=== PATIENT | male | born 1975 | race African-American/Black ===

== ENCOUNTER 2016-07-09 19:41 | Emergency (ER) | payer OTHER ==
[2016-07-09] MEDS ORDERED: ASPIRIN 81 MG TABLET, CHEWABLE PO ONE (21:01)
[2016-07-09] MEDS ORDERED: LISINOPRIL 10 MG TABLET PO ONE (23:09)
[2016-07-09] MEDS ORDERED: HYDROXYZINE PAMOATE 25 MG CAPSULE #4 (ER DISP) PO PRN (23:09)
--- NOTE | 2016-07-09 23:15 | ER Document Report ---
ED General - General Chief Complaint: Palpitations Stated Complaint: POSSIBLE PALPITATIONS Mode of Arrival: Ambulatory Information source: Patient Notes: Patient is a 41-year-old male who presents to the ER today for anxiety and refills of his blood pressure medication. Patient states that he recently went to her breakup and has been "a little depressed" but dealing with a lot of anxiety about being alone, bills, life, etc. He states that he will make an appointment with a primary care provider but has not called to make an appointment yet. He denies any chest pain, shortness of breath, suicidal or homicidal ideations. He states his anxiety gives him palpitations like his heart is racing. TRAVEL OUTSIDE OF THE [place] IN LAST 30 DAYS: No - Related Data Allergies/Adverse Reactions: No Known Allergies Allergy (Unverified 07/09/16 20:34) Past Medical History - General Information source: Patient - Social History Smoking Status: Former Smoker Chew tobacco use (# tins/day): Yes Frequency of alcohol use: Heavy Drug Abuse: None Family History: Reviewed & Not Pertinent Patient has suicidal ideation: No Patient has homicidal ideation: No - Past Medical History Cardiac Medical History: Reports: Hx Hypertension Review of Systems - Review of Systems Constitutional: No symptoms reported EENT: No symptoms reported Cardiovascular: See HPI Respiratory: No symptoms reported Gastrointestinal: No symptoms reported Genitourinary: No symptoms reported Male Genitourinary: No symptoms reported Musculoskeletal: No symptoms reported Skin: No symptoms reported Hematologic/Lymphatic: No symptoms reported Neurological/Psychological: See HPI Physical Exam - Notes Notes: PHYSICAL EXAMINATION: GENERAL: Anxious, but in no acute distress. HEAD: Atraumatic, normocephalic. EYES: Pupils equal round and reactive to light, extraocular movements intact, sclera anicteric, conjunctiva are normal. NECK: Normal range of motion, supple without lymphadenopathy LUNGS: CTAB and equal. No wheezes rales or rhonchi. HEART: Regular rate and rhythm without murmurs ABDOMEN: Soft, no tenderness. No guarding, no rebound EXTREMITIES: Normal range of motion, no pitting edema. No cyanosis. NEUROLOGICAL: Cranial nerves grossly intact. Normal sensory/motor exams. PSYCH: Anxious SKIN: Warm, Dry, normal turgor, no rashes or lesions noted Course - Re-evaluation Re-evalutation: 01/03/17 23:12 Patient refused blood work stating that he is just here to get refills of his lisinopril 20 mg that he was taking daily but has been out of for many months. I will also send him home with some Vistaril to take when he gets home to see if that calms his anxiety we also gave him a list of primary care providers in the area to make an appointment with. EKG revealed a normal sinus rhythm at a rate of 99 bpm. With no evidence of ischemia or abnormality. Discharge - Discharge Clinical Impression: Anxiety Hypertension Qualifiers: Hypertension type: essential hypertension Qualified Code(s): I10 - Essential ( primary) hypertension Condition: Stable Disposition: HOME, SELF-CARE Additional Instructions: Return immediately for any new or worsening symptoms. Follow up with primary care provider, call tomorrow to make followup appointment. Prescriptions: Hydroxyzine Pamoate [Vistaril 50 mg Capsule] 1 - 2 tab PO PRN PRN #30 capsule PRN Reason: Lisinopril 20 mg PO DAILY #30 tablet Forms: Return to Work
[2016-07-09 23:50] VITALS: BP 143/99
--- NOTE | 2016-07-10 16:04 | EKG REPORT ---
SEVERITY:- NORMAL ECG - SINUS RHYTHM : Confirmed by: Gena Milner 10-Jul-2016 16:03:18
== END 2016-07-09 23:48 | disposition home or self-care (01) ==
LOC: ER 19:41
DX: F41.9 Anxiety disorder, unspecified (principal); I10 Essential (primary) hypertension; Z91.14 Patient's other noncompliance with medication regimen; Z87.891 Personal history of nicotine dependence
CPT/HCPCS: 93005; 99285; 71010; 93010; J3490

== ENCOUNTER 2017-01-19 21:35 | Emergency (ER) | payer OTHER ==
[2017-01-19 21:48] VITALS: BP 133/95
== END 2017-01-19 22:55 | disposition left against medical advice (07) ==
LOC: ER 21:35
DX: Z53.9 Procedure and treatment not carried out, unspecified reason (principal)

== ENCOUNTER 2019-05-10 22:50 | Emergency (ER) | payer OTHER ==
[2019-05-10] MEDS ORDERED: ACETAMINOPHEN 325 MG TABLET PO ONE (23:37)
[2019-05-11] MEDS ORDERED: OXYCODONE HCL IR 5 MG TABLET PO ONE (02:24)
[2019-05-11] MEDS ORDERED: KETOROLAC TROMETHAMINE 60 MG/2 ML SDV IM ONE (02:25)
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
[2019-05-11 04:27] VITALS: BP 139/94
== END 2019-05-11 04:28 | disposition home or self-care (01) ==
LOC: ER 22:50
DX: S39.012A Strain of muscle, fascia and tendon of lower back, initial encounter (principal); V40.5XXA Car driver injured in collision with pedestrian or animal in traffic accident, initial encounter; F17.200 Nicotine dependence, unspecified, uncomplicated; I10 Essential (primary) hypertension
CPT/HCPCS: 72110; J1885

== ENCOUNTER 2020-02-27 21:30 | Emergency (ER) | payer OTHER ==
--- NOTE | 2020-02-27 22:23 | ER Document Report ---
ED Medical Screen (RME) - General Chief Complaint: Chest Pain Stated Complaint: CHEST PAIN Notes: 45-year-old male presenting today with 3 weeks of feeling his heart fluttering and stop. Blood pressure has also been elevated in the 150s systolic. He also has had intermittent chest pain and shortness of breath. Also has had an increased amount of anxiety/stress in the last 3 weeks of trying to be accepted by his coworkers. He also has an upcoming court appearance. Pain is nonradiating. No diaphoresis. History of hypertension. Takes lisinopril. Denies any history of heart attack or stroke. Denies any family history of heart attack or stroke. Occasionally smokes. Does drink. PE: Alert, oriented, anxious in appearance. Heart regular rate rhythm no murmurs rubs or gallops. Lungs are clear to auscultation bilaterally I have greeted and performed a rapid initial assessment of this patient. A comprehesive ED assessment and evaluation of this patient, analysis of test results and completion of the medical decision-making process will be conducted by additional ED providers. TRAVEL OUTSIDE OF THE [place] IN LAST 30 DAYS: No - Related Data Allergies/Adverse Reactions: No Known Allergies Allergy (Verified 02/27/20 21:42) Past Medical History - Social History Frequency of alcohol use: daily Drug Abuse: None - Past Medical History Cardiac Medical History: Reports: Hx Hypertension Renal/ Medical History: Denies: Hx Peritoneal Dialysis Physical Exam - Vital signs Vitals: Temp Pulse BP Pulse Ox 98.4 F 94 166/104 H 100 02/27/20 21:40 02/27/20 21:40 02/27/20 21:40 02/27/20 21:40 Course - Vital Signs Vital signs: Temp Pulse Resp BP Pulse Ox 98.4 F 94 166/104 H 100 02/27/20 21:41 02/27/20 21:40 02/27/20 21:40 02/27/20 21:40
[2020-02-27 22:36] LABS: ABSOLUTE BASOPHILS # (AUTO) 0.1 10^3/uL (0.0-0.2); ABSOLUTE EOSINOPHILS # (AUTO) 0.2 10^3/uL (0.0-0.6); ABSOLUTE LYMPHOCYTES (AUTO) 2.2 10^3/uL (0.5-4.7); ABSOLUTE MONOCYTES (AUTO) 0.5 10^3/uL (0.1-1.4); ABSOLUTE NEUT (AUTO) 3.4 10^3/uL (1.7-8.2); BASOPHILS % (AUTO) 0.8 % (0-2); EOSINOPHILS % (AUTO) 3.4 % (0-6); HEMATOCRIT 41.4 % (37.9-51.0); HEMOGLOBIN 13.7 g/dL (13.5-17.0); LYMPHOCYTES % (AUTO) 34.6 % (13-45); MEAN CORPUSCULAR HEMOGLOBIN 28.1 pg (27.0-33.4); MEAN CORPUSCULAR VOLUME 85 fl (80-97); MONOCYTES % (AUTO) 8.4 % (3-13); PLATELET COUNT 273 10^3/uL (150-450); RED BLOOD COUNT 4.87 10^6/uL (4.35-5.55); RED CELL DISTRIBUTION WIDTH 13.4 % (11.5-14.0); SEGMENTED NEUTROPHILS % (AUTO) 52.8 % (42-78); TOTAL CELLS COUNTED % (AUTO) 100 %; WHITE BLOOD COUNT 6.4 10^3/uL (4.0-10.5)
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
[2020-02-27 22:57] LABS: ALBUMIN 4.2 g/dL (3.5-5.0); ALKALINE PHOSPHATASE 59 U/L (38-126); ANION GAP 11 (5-19); ASPARTATE AMINO TRANSFERASE 31 U/L (17-59); BILIRUBIN,TOTAL 0.4 mg/dL (0.2-1.3); BLOOD UREA NITROGEN 9 mg/dL (7-20); CALCIUM 9.2 mg/dL (8.4-10.2); CARBON DIOXIDE 28 mmol/L (22-30); CHLORIDE 102 mmol/L (98-107); CREATINE KINASE 119 U/L (55-170); GLUCOSE 107 mg/dL (75-110); POTASSIUM 3.9 mmol/L (3.6-5.0); TOTAL PROTEIN 7.4 g/dL (6.3-8.2)
[2020-02-27 23:09] LABS: CREATINE KINASE MB 0.81 ng/mL (<4.55)
[2020-02-27 23:11] LABS: TROPONIN I < 0.012 ng/mL
--- NOTE | 2020-02-27 23:48 | EKG REPORT ---
SEVERITY:- OTHERWISE NORMAL ECG - SINUS TACHYCARDIA : Confirmed by: Gena Milner 27-Feb-2020 23:46:26
--- NOTE | 2020-02-28 00:11 | ER Document Report ---
ED General - General Chief Complaint: Anxiety Stated Complaint: CHEST PAIN Time Seen by Provider: 02/28/20 00:07 Primary Care Provider: [facility] [Provider Group] - Follow up tomorrow Notes: Patient is a 45-year-old male that comes emergency department for chief complaint of palpitations, feeling anxious, sleeping poorly, and feeling depressed. He states that he has a combination of things going on with a stressful job, life stressors, feeling lonely, and not being on his anxiety medication for a while. He states that he will get a feeling like his heart suddenly skips beats, goes fast, or even stops occasionally. However he denies chest pain, shortness of breath, dizziness, nausea, vomiting, or any pain in any location. He drinks 1 cup of coffee daily, he states that he has started drinking 2-4 beers daily and when he does not he feels more anxious but he has stopped easily multiple times without any symptoms of withdrawal. He denies any recreational drugs. He is treated for hypertension with lisinopril and he is completing clindamycin for a dental infection. He denies suicidal ideations or homicidal ideations. TRAVEL OUTSIDE OF THE [place] IN LAST 30 DAYS: No - Related Data Allergies/Adverse Reactions: No Known Allergies Allergy (Verified 02/27/20 21:42) Past Medical History - General Information source: Patient - Social History Smoking Status: Current Some Day Smoker Smoking Education Provided: Yes - <3 min Frequency of alcohol use: daily at times Drug Abuse: None Lives with: Alone Family History: Reviewed & Not Pertinent Patient has homicidal ideation: No - Past Medical History Cardiac Medical History: Reports: Hx Hypertension Renal/ Medical History: Denies: Hx Peritoneal Dialysis - Immunizations Immunizations up to date: Yes Hx Diphtheria, Pertussis, Tetanus Vaccination: Yes Review of Systems - Review of Systems Constitutional: No symptoms reported EENT: No symptoms reported Cardiovascular: See HPI Respiratory: No symptoms reported Gastrointestinal: No symptoms reported Genitourinary: No symptoms reported Male Genitourinary: No symptoms reported Musculoskeletal: No symptoms reported Skin: No symptoms reported Hematologic/Lymphatic: No symptoms reported Neurological/Psychological: See HPI Physical Exam - Vital signs Vitals: Temp Pulse BP Pulse Ox 98.4 F 94 166/104 H 100 02/27/20 21:40 02/27/20 21:40 02/27/20 21:40 02/27/20 21:40 - Notes Notes: GENERAL: Alert, interacts well. No acute distress. HEAD: Normocephalic, atraumatic. EYES: Pupils equal, round, and reactive to light. Extraocular movements intact. ENT: Oral mucosa moist, tongue midline. Oropharynx unremarkable. Airway patent. NECK: Full range of motion. Supple. Trachea midline. No lymphadenopathy. LUNGS: Clear to auscultation bilaterally, no wheezes, rales, or rhonchi. No respiratory distress. Non-tender chest wall. HEART: Regular rate and rhythm. No murmur ABDOMEN: Soft, non-tender. Non-distended. EXTREMITIES: Moves all 4 extremities spontaneously. No edema, normal radial and dorsalis pedis pulses bilaterally. No cyanosis. BACK: no cervical, thoracic, lumbar midline tenderness. No saddle anesthesia, normal distal neurovascular exam. Moves all extremities in full range of motion. NEUROLOGICAL: Alert and oriented x3. Normal speech. Cranial nerves II through XII grossly intact. Strength 5/5 in all extremities. PSYCH: Speaks and motions in a somewhat anxious manner, otherwise unremarkable SKIN: Warm, dry, normal turgor. No rashes or lesions noted. Course - Re-evaluation Re-evalutation: Work-up completely unremarkable including CBC, chemistry, troponin, TSH, magnesium, chest x-ray, EKG. Patient has actually not had any chest pain, shortness of breath, dizziness, or passing out. He simply reports palpitations, anxiety. On monitoring here I did not see any concerning arrhythmias, and most strongly suspect patient is having some PVCs especially with his poor sleep, caffeine use, occasional smoking. After discussing his work-up patient became very relieved, he states he is very grateful for this. However we had a long conversation. Patient states he is frequently anxious, depressed, and he feels he needs something to take when he becomes anxious, he states he used to be on Vistaril and is requesting this to be prescribed again. This was provided. Patient also requests referral for therapist and psychiatrist. I did offer him to stay for a mental health evaluation but he declined. He is not suicidal or homicidal. He has no current symptoms. He states he is ready for discharge and he understands return precautions. Stable and well-appearing at time of discharge. - Vital Signs Vital signs: Temp Pulse Resp BP Pulse Ox 98.4 F 94 17 134/79 H 100 02/27/20 21:41 02/27/20 21:40 02/28/20 02:00 02/28/20 01:01 02/28/20 02:00 - Laboratory Result Diagrams: 02/27/20 22:27 02/27/20 22:27 - EKG Interpretation by Me Additional EKG results interpreted by me: EKG shows borderline sinus tachycardia at a rate of 101, QTc of 431, normal axis, no T wave inversions or ST segment changes in consecutive leads. Discharge - Discharge Clinical Impression: Palpitations, Anxiety Insomnia Qualifiers: Insomnia type: unspecified Qualified Code(s): G47.00 - Insomnia, unspecified Condition: Stable Disposition: HOME, SELF-CARE Instructions: Anxiety ([facility]) Additional Instructions: Your monitoring and evaluation of your palpitations do not show any concerning findings. Things that commonly increase palpitations are nicotine, caffeine, anxiety, and poor sleep. Take the Vistaril if needed for anxiety or insomnia, call the listed referral for follow-up, I believe you will benefit from a therapist and possibly a psychiatrist. Return if you worsen including chest pain, difficulty breathing, passing out, fever, or something is not right. Prescriptions: Hydroxyzine Pamoate [Vistaril 25 mg Capsule] 1 - 2 cap PO Q6 PRN #30 capsule PRN Reason: Forms: Return to Work Referrals: [facility] [Provider Group] - Follow up tomorrow
[2020-02-28] MEDS ORDERED: HYDROXYZINE PAMOATE 25 MG CAPSULE (4 CAP/ER DISP) PO PRN (02:08)
[2020-02-28 02:18] VITALS: BP 134/79
== END 2020-02-28 02:35 | disposition home or self-care (01) ==
LOC: ER 21:30
DX: G47.00 Insomnia, unspecified (principal); F41.9 Anxiety disorder, unspecified; R00.2 Palpitations; R07.9 Chest pain, unspecified; F32.9 Major depressive disorder, single episode, unspecified; I10 Essential (primary) hypertension; Z79.899 Other long term (current) drug therapy; F17.200 Nicotine dependence, unspecified, uncomplicated
CPT/HCPCS: 93005; 99285; 36415; 82553; 82550; 83735; 84443; 85025; 80053; 84484; 71046; 93010; J3490